=== PATIENT | female | born 1975 | race Caucasian/White ===

== ENCOUNTER 2016-03-13 15:47 | Emergency (ER) | payer OTHER ==
[2016-03-13 18:54] VITALS: BP 142/98
--- NOTE | 2016-03-24 22:54 | UC ---
Upper Extremity HPI - HPI Summary HPI Summary: pain right upper arm. Started with wrist pain, now radiates right up to elbow. No repetitive activities, but does do a lot of heavy work. Sometimes wakes her up at night. Tingling and numbness at times, other times pain radiating from wrist up to elbow. Fingers sometimes change colors, bluish, pink, pale - History of Current Complaint Chief Complaint: UCUpperExtremity Stated Complaint: RIGHT ARM SWELLING X 1WEEK Time Seen by Provider: 03/13/16 19:08 Hx Obtained From: Patient Hx Last Menstrual Period: 03/11/16 Onset/Duration: Gradual Onset, Lasting Weeks - 2 Severity Initially: Mild Severity Currently: Moderate Pain Intensity: 2 Pain Scale Used: 0-10 Numeric Location Of Pain: Is Discrete @ - right wrist and forearm Character: Dull, Aching, Stiffness Aggravating Factor(s): Flexion, Extension Alleviating Factor(s): Ice, OTC Meds, Rest Associated Signs And Symptoms: Positive: Swelling - sometimes. Negative: Redness, Bruising Related History: Dominant Hand Right - Risk Factors Non-Orthopedic Risk Factor: Negative DVT Risk Factors: Negative Septic Arthritis Risk Factor: Negative Compartment Syndrome Risk Factors: Pain, Paresthesias - Allergies/Home Medications Allergies/Adverse Reactions: Allergies Allergy/AdvReac Type Severity Reaction Status Date / Time No Known Allergies Allergy Verified 03/13/16 18:47 Home Medications: Home Medications Acetaminophen TAB* [Tylenol TAB*] 650 mg PO Q4H PRN 03/13/16 [History Confirmed 03/13/16] PMH/Surg Hx/FS Hx/Imm Hx Respiratory History Of: Reports: Bronchitis - REPEATED INSTANCES Denies: COPD, Asthma - Surgical History Surgical History: Yes Surgery Procedure, Year, and Place: - Family History Known Family History: Positive: Hypertension - Social History Occupation: Employed Full-time Lives: With Family Alcohol Use: Rare Substance Use Type: None Smoking Status (MU): Current Every Day Smoker Type: Cigarettes Amount Used/How Often: 1/2 PPD Length of Time of Smoking/Using Tobacco: 24 YRS Household Exposure Type: Cigarettes Review of Systems Constitutional: Negative Skin: Negative Eyes: Negative ENT: Negative Respiratory: Negative Cardiovascular: Negative Gastrointestinal: Negative Genitourinary: Negative Motor: Negative Neurovascular: Negative Musculoskeletal: Arthralgia, Decreased ROM, Myalgia Neurological: Negative Psychological: Negative All Other Systems Reviewed And Are Negative: Yes Physical Exam Triage Information Reviewed: Yes Appearance: Well-Appearing, No Pain Distress, Well-Nourished Vital Signs: Initial Vital Signs Temp 98.4 F 03/13/16 18:48 Pulse 77 03/13/16 18:48 Resp 17 03/13/16 18:48 BP 142/98 03/13/16 18:48 Pulse Ox 100 03/13/16 18:48 Vital Signs Reviewed: Yes Eye Exam: Normal Neck exam: Normal Respiratory Exam: Normal Cardiovascular Exam: Normal Musculoskeletal Exam: Other - right arm appears normal. Mild discomfort on palpation of volar forearm and wrist. Neg Tinel's. 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 Neurological Exam: Normal Psychological Exam: Normal Skin Exam: Normal Upper Extremity Course/Dx - Differential Dx/Diagnosis Differential Diagnosis/HQI/PQRI: Contusion, Strain Provider Diagnoses: carpal tunnel syndrome Discharge - Discharge Plan Condition: Stable Disposition: HOME Prescriptions: Meloxicam [Mobic] 15 mg PO DAILY PRN #30 tab PRN Reason: arm pain Patient Education Materials: Carpal Tunnel Syndrome Exercises (GEN), Carpal Tunnel Syndrome (ED) Referrals: Brett Marsk MD [Medical Doctor] - Svetlana Jordan MD [Primary Care Provider] - Additional Instructions: If no improvement after a week of treatment, call Dr. Marks (Orthopedic Surgery )
== END 2016-03-13 19:25 | disposition home or self-care (01) ==
LOC: UCCORT 15:47
DX: G56.01 Carpal tunnel syndrome, right upper limb (principal); F17.210 Nicotine dependence, cigarettes, uncomplicated
CPT/HCPCS: 99213; G0463

== ENCOUNTER → 2016-05-15 06:35 | Day surgery (SDC) | payer OTHER ==
[~2016-05-15 06:35] MED LIST: Buffered Lidocaine 1% SYRIN* 3 ML/SYR SYRINGE INTRADERM ONE; Bupivacaine 0.25% SDV* 30 ML ONE; Bupivacaine 0.5% W/EPI SDV* 30 ML VIAL ONE; Dexamethasone IV* 4 MG/ML 1 ML (4 MG) ONE; HYDROmorphone* 1 MG/ML 1 ML SYR IV PRN; Lidocaine 2% PF* 5 ML VIAL ONE; Metoclopramide IV* 5 MG/ML 2 ML VIAL IV PRN; Metoclopramide IV* 5 MG/ML 2 ML VIAL ONE; Midazolam* 1 MG/ML 2 ML VIAL (2 MG) ONE; Ondansetron INJ* 2 MG/ML VIAL ONE; Propofol* 10 MG/ML 20 ML BTL IV PUSH ONE; Scopolamine 1.5 mg* PATCH TRANSDERM PRN; ceFAZolin 2 GM PREMIX(*) 2 GM/50 ML BAG IVPB ONE; fentaNYL* 50 MCG/ML 2 ML VIAL (100 MCG VIAL) IV PRN; fentaNYL* 50 MCG/ML 2 ML VIAL (100 MCG VIAL) ONE
[2016-05-15 11:17] VITALS: BP 118/51
--- NOTE | 2016-05-16 02:16 | OP ---
DATE OF OPERATION: 05/15/16 - [facility] DATE OF : 71 SURGEON: Adalberto Cullen MD [facility] CERTIFIED NETWORK ASSOCIATE: NEEMA Pimentel ANESTHESIOLOGIST: Dr. Deal. ANESTHESIA: Axillary block plus general. PRE-OP DIAGNOSIS: Right wrist ulnar impaction syndrome. POST-OP DIAGNOSIS: Right wrist ulnar impaction syndrome. OPERATIVE PROCEDURE: 1. Diagnostic right wrist arthroscopy. 2. Right wrist arthroscopic dorsal synovectomy. 3. Right ulnar shortening osteotomy. INDICATIONS: Martina is a patient, who had previously seen my partner, Dr. 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 I met with Martina and we talked about treatment options. I offered her an injection and a trial of some physical therapy, which she adamantly denied. We discussed surgical intervention. To me, this included a right wrist arthroscopy and probable central TFCC debridement and then an ulnar shortening osteotomy. She elevated to proceed with surgery. We had discussed risks and benefits including the risks of chronic pain and nonunion in the ulna. She is 41 and relatively healthy, but she does smoke and so I told her that she is at increased risk for nonunion. We had also discussed a way for osteotomy and other ulnar shortening variant type procedures. Ultimately, she is otherwise healthy and I feel like she will do well with the osteotomy through the shaft. EBL: 5 mL. COMPLICATIONS: None. FINDINGS: Extremely thin central TFCC, really just not even a millimeter of central TFCC remained, but no frayed or loose or jagged edges. Therefore, I did not debride the TFCC at all. There was some dorsal synovitis, which was debrided. The articular cartilage otherwise looked healthy and intact. Scapholunate and lunotriquetral ligaments looked intact and the joint there was stable through the midcarpal row. DESCRIPTION OF PROCEDURE: Martina was seen in the preoperative holding area and the correct side and site of the procedure were identified. We came back to the operating room where the axillary block was performed and then general anesthesia was induced. The arm was then prepped and draped in the usual fashion. The tourniquet was applied proximally before draping. We then had a formal time-out. The arm was positioned in the [facility] arthroscopy tower. It was secured and well - padded proximal to the elbow. The traction was hung at about 25. I then exsanguinated the extremity with the Esmarch and the tourniquet was inflated to 250 mmHg. I began by creating the 3/4 portal using an 11 blade followed by the mosquito and then the blunt trocar. The camera was placed. I got excellent pictures of the radial-sided structures. These all looked intact and healthy. The membranous portion of the SL ligament looked intact. There was some dorsal synovitis. I then placed a needle through the 6R and 4/5 portals. Ultimately, it looked like the 4/5 portal would give me the better trajectory and so I created the 4/5 portal in similar fashion. The probe was introduced. I probed the peripheral and dorsal and volar TFCC, this all was intact. There was essentially no TFCC left as the probe just scraped on. There was probably a millimeter of TFCC left and then the probe was just rubbing on the bone underneath that. There was no trampling effect. This was really just a very thin layer of tissue. The radial attachment of the TFCC looked intact. Since there were no frayed edges, I decided there was no need to debride the TFCC. I did introduce the shaver and resect the dorsal synovitis that was present. I then withdrew the instruments from the proximal row and went to the midcarpal row where the radial and ulnar midcarpal portals were developed in standard fashion. The camera was placed through the radial midcarpal portal. The SL and LT intervals were identified. It was a type 2 lunate. The probe was introduced through the ulnar portal and both intervals were probed. I could not get the probe between in either the scapholunate joint or the lunotriquetral joint. At this point, after I had taken the pictures, I withdrew all the instruments. I went ahead and the let the arm out of the traction. I passed off all the arthroscopic instruments and we prepared for the open portion of the procedure. The elbow was flexed and the incision for the ulnar shortening osteotomy was placed directly over the subcutaneous border of the ulna. Longitudinal incision was made. Full-thickness flaps were raised right off of the deep fascia. This was split right between the ECU and FCU. Full-thickness subperiosteal flap was raised off of the dorsum of the ulna. This was nice and flat and looked like a prefect position for the plate, so I went ahead and brought in the [employer] ulnar shortening osteotomy plate. This was positioned and clamped into place. I checked fluoroscopic images of the plate on the ulna and then as well as the wrist. Preoperatively, I decided on 4 mm of shortening. Based off of the look of the fluoroscopic images of the wrist, I thought this would again be a good amount to resect. I therefore secured the plate with 3 proximal screws. The distal screw had been placed in the most distal part of the oblong hole prior to that. The cutting guide was placed and the first cut was made. The second cutting guide was placed and the second cut was made. The wafer of ulna came out in one nice piece. The compression clamp was then applied and the K-wire was introduced through it distally. I loosened the screw in the oblong hole and then compressed the osteotomy. It was perfect apposition. The oblong hole screw was again tightened. I then used the oblong hole and the guide to place the partially threaded oblong screw. There was really excellent compression across the osteotomy. It was very difficulty even to see where the osteotomy was. At this point, I went ahead and placed the remaining distal screws and all the pins were removed. The fluoroscopic images showed excellent plate placement and the 3 proximal screws were little bit short. They were 12 mm screws, so I swapped them out for 14 mm screws and then rechecked fluoroscopic imaging and then everything looked very nice. I checked some x-rays of the wrist and I was very satisfied with the amount of shortening. We then irrigated out the wound copiously and the fascia was closed with some 3-0 Vicryl suture. Subcutaneous tissue was approximated with 3 -0 Vicryl suture. Skin was closed with nylon. The arthroscopic portals were likewise closed with 4-0 nylon suture. The wounds were dressed with Xeroform, 4x4's, sterile Webril, and then a sugar tong splint was applied. Tourniquet was deflated. I had exsanguinated the arm. Total tourniquet time was just about 90 minutes. The fingers all pinked up immediately. At this point, she was awoken up and taken to the recovery room in stable condition. [id number]/[facility] #: [id number] WALTER
--- NOTE | 2016-05-16 15:41 | RAD ---
INDICATION: Ulnar shortening. COMPARISON: April 18, 2016 MRI. TECHNIQUE: 35 seconds fluoroscopy. FINDINGS: Spot images document placement of a cortical plate and multiple screws across a mid diaphyseal ulnar osteotomy site. IMPRESSION: Procedural fluoroscopy. CPT II Codes: 6045F
== END | disposition home or self-care (01) ==
LOC: OREAST 06:35
PROVIDERS: ATTEND Orthopaedic Surgery Hand Surgery
DX: M24.831 Other specific joint derangements of right wrist, not elsewhere classified (principal); F17.210 Nicotine dependence, cigarettes, uncomplicated; E66.9 Obesity, unspecified
CPT/HCPCS: 76000; 88304; 88311; C1713; C1776; J0690; J1100; J2250; J2405; J2704; J3010